=== PATIENT | male | born 1990 | race African-American/Black ===

== ENCOUNTER 2017-04-21 12:26 | Emergency (ER) | payer SELFPAY ==
[~2017-04-21] VITALS: Ht 182.9 cm; Wt 74.8 kg
--- NOTE | 2017-04-21 12:32 | NUR ---
PT BIBRA TO ER BED 10 C/O R SHOULDER PAIN S/P FELL OFF A SKATEBOARD AND LANDED ON HIS R SIDE PUSHING HIS R ARM UPWARDS AND POSSIBLE DISLOCATION. DENIES ANY OTHER TRAUMA. PLACED ON MONITOR. VSS.
[2017-04-21] MEDS ORDERED: HYDROMORPHONE 1 MG/1 ML DISP.SYRIN ONE (12:37)
[2017-04-21] MEDS ORDERED: ONDANSETRON HCL/PF 4 MG/2 ML VIAL ONE (12:37)
--- NOTE | 2017-04-21 12:37 | NUR ---
DR ALFORD AT BEDSIDE FOR EVAL.
--- NOTE | 2017-04-21 12:56 | NUR ---
RADIOLOGY AT BEDSIDE FOR R SHOULDER XRAY.
[2017-04-21] MEDS ORDERED: HYDROMORPHONE INJ 2 MG/ML DISP.SYRIN IV ONE (13:00)
[2017-04-21] MEDS ORDERED: IV NS 0.9% 1,000 ML BAG IV ONE (13:00)
[2017-04-21] MEDS ORDERED: ONDANSETRON HCL/PF 4 MG/2 ML VIAL IVP ONE (13:00)
[2017-04-21] MEDS ORDERED: MIDAZOLAM HCL 5 MG/5ML VIAL ONE (13:50)
[2017-04-21] MEDS ORDERED: FENTANYL PF 100MCG/2ML AMPUL ONE (13:50)
[2017-04-21] MEDS ORDERED: MIDAZOLAM HCL 2 MG/2ML VIAL IV ONE (14:00)
[2017-04-21] MEDS ORDERED: FENTANYL PF 100MCG/2ML AMPUL IV ONE (14:00)
--- NOTE | 2017-04-21 14:10 | NUR ---
dr pickard, rt otto, tech shane at bedside for manual reduction of rt shoulder dislocation via conscious sedation. 1411 medication given, manual reduction by dr pickard. shoulder immobilizer applied. awaiting post rection xray. 1413 pt now awake. stable vitals. will monitor closely.
--- NOTE | 2017-04-21 14:36 | NUR ---
radiology at bedside for post reduction xray.
--- NOTE | 2017-04-21 15:07 | NUR ---
pt provided w/ sandwich and oral fluids. tolerating it well. stable vitals.
[2017-04-21 15:32] VITALS: BP 128/64
--- NOTE | 2017-04-21 15:32 | NUR ---
Patient discharged to home in stable condition. Written and verbal after care instructions given. Patient verbalizes understanding of instruction.IV removed. Catheter intact and site benign. Pressure and 4x4 applied to site. No bleeding noted.
== END 2017-04-21 15:33 | disposition home or self-care (01) ==
LOC: ER 12:28
DX: S43.014A Anterior dislocation of right humerus, initial encounter (principal); V00.131A Fall from skateboard, initial encounter; Y93.51 Activity, roller skating (inline) and skateboarding; Y92.89 Other specified places as the place of occurrence of the external cause; Y99.9 Unspecified external cause status
CPT/HCPCS: 73030-TC; A4606; J1170; J2250; J2405; J3010; J7030; Z7610